=== PATIENT | male | born 1990 | race Caucasian/White ===

== ENCOUNTER 2016-07-25 14:39 | Emergency (ER) | payer BC ==
[2016-07-25 14:46] VITALS: BP 128/61; PULSE 71; RESP 22; TEMP 97.9; O2SAT 98
--- NOTE | 2016-07-25 15:13 | CPEKG ---
Heart Rate: 68 RR Interval: 882 P-R Interval: 172 QRSD Interval: 84 QT Interval: 392 QTC Interval: 417 P Cameron: 50 QRS Cameron: 6 T Wave Cameron: 26 EKG Severity - NORMAL ECG - EKG Impression: SINUS RHYTHM Electronically Signed By: Santos Giron 25-Jul-2016 15:15:50
--- NOTE | 2016-07-25 15:21 | EDPHY ---
H & P Time Seen by Provider: 07/25/16 14:55 HPI/ROS: HPI: 26-year-old male presents to emergency department with chief concern left axillary lymph node swelling. Reports onset of symptoms October 2015 for which he was prescribed a course of antibiotic. He denies improvement of symptoms. Lymph node is unchanged. Reports onset of left-sided chest pain a week ago without fever, chills, URI symptoms, shortness of breath. Denies nausea, vomiting, diarrhea, night sweats, unexplained weight loss. Reports occasional back numbness and left arm tingling that have been present for over a year. Denies significant past medical history or other concerning symptoms. No aggravating or alleviating factors. Moved to [place] 1 year ago and has no primary care provider. Takes no home medications. ROS:10 point review of systems is negative other than as stated in HPI Past Medical/Surgical History: Denies past medical or surgical history, or pertinent family history. Social History: Lives in [place] with his girlfriend Smoking Status: Never smoked Physical Exam: Vital signs stable, reviewed by me General: Awake, alert, calm, cooperative. No acute distress. Head: Normalocephalic. Atraumatic. EENT: PERRLA. EOMI. No pallor or injection. Anicteric. No nystagmus. No injection. TMs intact bilaterally with normal landmarks. No rhinnorhea, nasal passages clear. Oropharynx without redness, exudates, or lesions. Tonsils 2+ bilaterally, no exudates. Neck: Supple, nontender. No lymphadenopathy. Full range of motion. No meningismus. No supraclavicular lymphadenopathy. Axilla: 2 cm x 1 cm mobile, minimally tender left axillary node. Respiratory: Breathing unlabored. Breath sounds equal bilaterally and clear to auscultation. No adventitious sounds. CV: Chest nontender, atraumatic. Heart rate regular. No murmur, distal pulses 2+ bilaterally. Brisk cap refill all extremities. GI: Abdomen soft, nontender. Bowel sounds normoactive and positive x4 quadrants. Neuro: Alert. Oriented x 3. Speech clear. Nonfocal cranial nerves throughout. Sensation intact all extremities. Skin: Skin warm, dry, intact. No rashes, abrasions, or lacerations. Skin turgor normal. Extremities: Full range of motion in all 4 extremities. Strength 5+ all extremities. Constitutional: Initial Vital Signs Temperature (C) 36.6 C 07/25/16 14:43 Heart Rate 71 07/25/16 14:43 Respiratory Rate 22 H 07/25/16 14:43 Blood Pressure 128/61 H 07/25/16 14:43 O2 Sat (%) 98 07/25/16 14:43 O2 Delivery Mode Room Air Allergies/Adverse Reactions: No Known Allergies Allergy (Unverified 07/25/16 14:43) Home Medications: Medication Instructions Recorded NK [No Known Home Meds] 07/25/16 Medical Decision Making ED Course/Re-evaluation: 26-year-old male presents to emergency department with complaints of a left axillary large node. Took a course of antibiotics/October. Node is unchanged. It is approximately 2 cm x 1 cm. It is mobile, nontender. Patient also complains of chest pain that onset 1 week ago. He has no URI symptoms. EKG shows a sinus rhythm, rate 68, no evidence of ischemia or dysrhythmia. He has been counseled regarding need to follow up with primary care for ongoing evaluation and management of his symptoms. He verbalizes understanding of plan and agrees to do so. Differential Diagnosis: Differential diagnosis includes but is not limited to lymphadenitis, infection, normal node, CA, abscess Departure - Departure Disposition: Home, Routine, Self-Care Clinical Impression: Lymphadenitis, chronic Chest pain Qualifiers: Chest pain type: unspecified Qualified Code(s): R07.9 - Chest pain, unspecified Condition: Good Instructions: Adenitis (ED), Chest Pain (ED) Additional Instructions: Plan: May use heat to left axilla as needed You may use 600 mg of ibuprofen every 6 hours for fever, inflammation, or pain. Always take ibuprofen with food and stay well hydrated while taking. Do not exceed the maximum allowable dose in a 24 hour period which is 2400 mg. Please follow-up for recheck next week with primary care as discussed. You may follow up with on-call outpatient medicine provider Dr. Jesús Marrero or [facility].When you call to schedule appointment, please let the office know you are an "ER follow up" appointment" Your EKG is normal Referrals: NONE *PRIMARY CARE P,. [Primary Care Provider] - As per Instructions Jesús Marrero MD [[facility] Primary Care Provider] - As per Instructions [facility],. [Clinic] - As per Instructions
== END 2016-07-25 15:24 | disposition home or self-care (01) ==
DX: R07.9 Chest pain, unspecified (principal); I88.1 Chronic lymphadenitis, except mesenteric